=== PATIENT | female | born 2000 | race Caucasian/White ===

== ENCOUNTER 2024-02-27 23:33 | Emergency (ER) | payer BC ==
[2024-02-28 01:06] LABS: Globulin 3.1 g/dL (2.4-3.5)
[2024-02-28 01:10] LABS: #Basophils 0.05 10x3/uL (0.0-0.2); %Basophils 0.2 % (0.0-1.0); %Eosinophils 0.4 % (0.0-10.0); %Lymphocytes 2.1 % (21.0-51.0); %Monocytes 4.5 % (0.0-10.0); %Neutrophils 92.4 % (42.0-75.0); ALT (SGPT) 14 U/L (8-55); AST (SGOT) 22 U/L (5-34); Albumin 3.8 g/dL (3.5-5.0); Alkaline Phosphatase 55 U/L (40-110); Anion Gap 18 mmol/L (10-20); BUN (Urea Nitrogen) 14 mg/dL (7.0-18.7); Bilirubin, Total 1.2 mg/dL (0.2-1.2); Calc. Creatinine Clearance 0 mL/min (70-130); Calcium 9.4 mg/dL (7.8-10.44); Carbon Dioxide 17 mmol/L (22-29); Chloride 107 mmol/L (98-107); Estimated GFR 86; Glucose 105 mg/dL (70-105); Hematocrit 46.6 % (36.0-47.0); Hemoglobin 15.4 g/dL (12.0-16.0); Mean Corpuscular Volume 93.8 fL (78.0-98.0); Mean Platelet Volume 12.9 fL (7.4-10.4); Platelet Count 60 10x3/uL (130-400); Potassium 3.9 mmol/L (3.5-5.1); Protein, Total 6.9 g/dL (6.0-8.3); Red Blood Cell (RBC) Count 4.97 mill/uL (4.20-5.40); Sodium 138 mmol/L (136-145)
[2024-02-28 01:15] LABS: PTT 24.1 sec (22.9-36.1); Prothrombin Time 12.9 sec (12.0-14.7)
[2024-02-28 01:46] LABS: Platelet Adequacy Comment Platelets Decreased; RBC Morphology Within Normal Limits
[2024-02-28] MEDS ORDERED: Azithromycin 500 MG VIAL ONE (02:44)
[2024-02-28] MEDS ORDERED: Acetaminophen 500 MG TAB ONE (02:44)
[2024-02-28 16:07] LABS: Campy jejuni + coli by PCR Negative (Negative); STEC Shiga Toxin 1+2 Negative (Negative); Salmonella spp. by PCR Negative (Negative); Shigella spp + EIEC by PCR Negative (Negative)
== END 2024-02-28 04:00 | disposition home or self-care (01) ==
LOC: ERS 23:33
DX: R19.7 Diarrhea, unspecified (principal)
CPT/HCPCS: 36415; 36416; 80053; 82274; 85025; 85610; 85730; 86850; 86870; 86900; 86901; 86904; 86905; 86922; 87324; 87338; 87449; 87505; 96374; J0456